=== PATIENT | female | born 1990 | race Caucasian/White ===

== ENCOUNTER 2020-02-03 06:26 | Observation (INO) | payer OTHER ==
[~2020-02-03] VITALS: Ht 162.6 cm; Wt 105.7 kg
[2020-02-03 06:40] VITALS: Ht 162.6 cm; Wt 105.7 kg
[2020-02-03 08:42] LABS: ALBUMIN 3.5 g/dL (3.4-5.0); ALKALINE PHOSPHATASE 58 U/L (46-116); ALT/SGPT 49 U/L (14-59); AST/SGOT 33 U/L (15-37); BILIRUBIN TOTAL 0.4 mg/dL (0.20-1.00); CALCIUM 8.3 mg/dL (8.5-10.1); CARBON DIOXIDE 23.8 mmol/L (21-32); CHLORIDE SERUM 99 mmol/L (98-107); CREATININE SERUM 0.8 mg/dL (0.6-1.0); GFR1 > 60 mL/min; GLUCOSE SERUM 115 mg/dL (74-106); POTASSIUM SERUM 3.5 mmol/L (3.5-5.1); SODIUM SERUM 131 mmol/L (136-145)
[2020-02-03 09:06] LABS: BASOPHIL % 0.4 % (0-2); PLATELET COUNT 253 x10^3mcL (130-400)
[2020-02-03 09:09] LABS: UA SPECIFIC GRAVITY >=1.030 (1.005-1.035); microscopic required? YES; urine erythrocyte 2+ (NEGATIVE)
[2020-02-03 09:18] LABS: RED CELL DISTRIBUTION WIDTH 19.8 % (11.5-14.5)
[2020-02-03] MEDS ORDERED: FERROUSAL325 MG (10:17)
[2020-02-03 12:05] LABS: AMPHETAMINE QUAL UR NONE DETECTED (See below)
[2020-02-03 14:50] LABS: rbc morphology (normal/abnorm) ABNORMAL (NORMAL)
[2020-02-03 16:42] VITALS: BP 112/67
[2020-02-03 17:21] VITALS: BP 124/58
[2020-02-03 20:23] VITALS: BP 132/76
[2020-02-04 05:32] VITALS: BP 122/84
[2020-02-04 05:46] LABS: BASOPHIL % 0.9 % (0-2); PLATELET COUNT 249 x10^3mcL (130-400)
[2020-02-04 05:57] LABS: ALBUMIN 3.5 g/dL (3.4-5.0); ALKALINE PHOSPHATASE 60 U/L (46-116); ALT/SGPT 57 U/L (14-59); AST/SGOT 42 U/L (15-37); BILIRUBIN TOTAL 0.54 mg/dL (0.20-1.00); CALCIUM 9.4 mg/dL (8.5-10.1); CARBON DIOXIDE 27.7 mmol/L (21-32); CHLORIDE SERUM 102 mmol/L (98-107); CREATININE SERUM 0.7 mg/dL (0.6-1.0); GFR1 > 60 mL/min; GLUCOSE SERUM 107 mg/dL (74-106); POTASSIUM SERUM 4.1 mmol/L (3.5-5.1); SODIUM SERUM 136 mmol/L (136-145); TOTAL PROTEIN, SERUM 7.2 g/dL (6.4-8.2)
[2020-02-04 08:27] VITALS: BP 131/69
[2020-02-04 12:06] LABS: rbc morphology (normal/abnorm) ABNORMAL (NORMAL)
[2020-02-04] MEDS ORDERED: PROVERA10 MG PO (12:15)
[2020-02-04 12:38] VITALS: BP 126/68
[2020-02-04 13:02] VITALS: BP 126/68
[2020-02-04 15:52] LABS: BASOPHIL % 1.2 % (0-2); PLATELET COUNT 214 x10^3mcL (130-400)
[2020-02-04 15:56] LABS: RED CELL DISTRIBUTION WIDTH 24.3 % (11.5-14.5)
[2020-02-04 16:04] LABS: rbc morphology (normal/abnorm) ABNORMAL (NORMAL)
[2020-02-04 16:06] LABS: ovalocyte/elliptocyte 1+
[2020-02-04 17:11] VITALS: BP 137/83
== END 2020-02-04 17:23 | disposition home or self-care (01) ==
LOC: ED 06:26 → DU 10:00
PROVIDERS: Emergency Medicine; ADMIT Hospitalist; ATTEND Hospitalist
DX: D64.9 Anemia, unspecified (principal); F41.8 Other specified anxiety disorders; E87.1 Hypo-osmolality and hyponatremia
CPT/HCPCS: G0378; G0480; J2060; J7050; P9016; Q0092

== ENCOUNTER 2020-02-24 12:39 | Emergency (ER) | payer OTHER ==
[~2020-02-24] VITALS: Ht 162.6 cm; Wt 110.2 kg
[~2020-02-24 12:39] MED LIST: FERROUSAL325 MG; PROVERA10 MG PO
[2020-02-24 12:41] VITALS: Ht 162.6 cm; Wt 110.2 kg
[2020-02-24 14:29] LABS: BASOPHIL % 0.5 % (0-2); PLATELET COUNT 294 x10^3mcL (130-400)
[2020-02-24 14:33] LABS: RED CELL DISTRIBUTION WIDTH 29.4 % (11.5-14.5)
[2020-02-24 14:41] LABS: CALCIUM 9.3 mg/dL (8.5-10.1); CARBON DIOXIDE 27.3 mmol/L (21-32); CHLORIDE SERUM 103 mmol/L (98-107); CREATININE SERUM 0.8 mg/dL (0.6-1.0); GFR1 > 60 mL/min; GLUCOSE SERUM 114 mg/dL (74-106); POTASSIUM SERUM 3.8 mmol/L (3.5-5.1); SODIUM SERUM 139 mmol/L (136-145)
[2020-02-24 15:05] LABS: rbc morphology (normal/abnorm) ABNORMAL (NORMAL)
[2020-02-24 15:06] VITALS: BP 119/75
== END 2020-02-24 15:18 | disposition home or self-care (01) ==
LOC: ED 12:39
PROVIDERS: Student in an Organized Health Care Education/Training Program
DX: F41.0 Panic disorder [episodic paroxysmal anxiety] (principal); R42 Dizziness and giddiness; J45.909 Unspecified asthma, uncomplicated

== ENCOUNTER 2020-05-23 10:37 | Emergency (ER) | payer OTHER ==
[~2020-05-23] VITALS: Ht 162.6 cm; Wt 103.0 kg
[2020-05-23 10:40] VITALS: Ht 162.6 cm; Wt 103.0 kg
[2020-05-23 11:40] LABS: BASOPHIL % 0.6 % (0.2-1.3); PLATELET COUNT 244 x10^3mcL (179-408)
[2020-05-23 11:41] LABS: CALCIUM 9.2 mg/dL (8.5-10.1); CARBON DIOXIDE 27.2 mmol/L (21-32); CHLORIDE SERUM 103 mmol/L (98-107); CREATININE SERUM 0.7 mg/dL (0.6-1.0); GFR1 > 60 mL/min; GLUCOSE SERUM 110 mg/dL (74-106); POTASSIUM SERUM 3.9 mmol/L (3.5-5.1); SODIUM SERUM 139 mmol/L (136-145)
[2020-05-23 11:46] LABS: ALBUMIN 3.7 g/dL (3.4-5.0); ALKALINE PHOSPHATASE 58 U/L (46-116); ALT/SGPT 70 U/L (14-59); AST/SGOT 68 U/L (15-37); BILIRUBIN TOTAL 0.26 mg/dL (0.20-1.00); TOTAL PROTEIN, SERUM 7.7 g/dL (6.4-8.2)
[2020-05-23 13:01] VITALS: BP 140/88
== END 2020-05-23 13:01 | disposition home or self-care (01) ==
LOC: ED 10:37
PROVIDERS: Student in an Organized Health Care Education/Training Program
DX: K92.1 Melena (principal); J45.909 Unspecified asthma, uncomplicated; Z72.89 Other problems related to lifestyle; Z86.2 Personal history of diseases of the blood and blood-forming organs and certain disorders involving the immune mechanism

== ENCOUNTER 2020-06-20 04:50 | Emergency (ER) | payer OTHER ==
[~2020-06-20] VITALS: Ht 162.6 cm; Wt 103.4 kg
[2020-06-20] MEDS ORDERED: SOMA350 MG PO (05:41)
[2020-06-20] MEDS ORDERED: DICLOFENAC SOD75 M1 PO (05:41)
[2020-06-20] MEDS ORDERED: VOLTAREN100 GM TOP (05:41)
[2020-06-20 06:00] VITALS: BP 124/91
== END 2020-06-20 06:08 | disposition home or self-care (01) ==
LOC: ED 04:50
DX: S46.912A Strain of unspecified muscle, fascia and tendon at shoulder and upper arm level, left arm, initial encounter (principal); J45.909 Unspecified asthma, uncomplicated; X50.0XXA Overexertion from strenuous movement or load, initial encounter; Y93.89 Activity, other specified; Y92.89 Other specified places as the place of occurrence of the external cause; Y99.8 Other external cause status
CPT/HCPCS: J1885